=== PATIENT | male | born 1965 | race Caucasian/White ===

== ENCOUNTER 2023-02-10 08:46 | Emergency (ER) | payer OTHER, SELFPAY ==
[2023-02-10 08:48] VITALS: BP 132/100; PULSE 100; RESP 18; TEMP 36.6; O2SAT 97
--- NOTE | 2023-02-10 09:40 | ED.GENADULT ---
HPI - General Adult General Chief complaint: Unspecified Stated complaint: throat problems Time Seen by Provider: 02/10/23 09:02 History of Present Illness HPI narrative: 57-year-old male reports for evaluation for dysphagia and laryngitis after his rotator cuff surgery on 01/27. Patient had rotator cuff surgery with Dr. Snyder at [facility] on 01/27. Patient states since then, he has developed difficulty swallowing and talking. He states he is having trouble eating because he feels as though food is getting stuck in his throat. He saw his surgeon for follow-up recently week after surgery he told him it will likely get better with time. The anesthesiologist was contacted regarding the case he then called the patient and advised the patient to wait out symptoms and that they will likely a better time, however the patient states that the symptoms seem to be getting worse. States that currently does not feel like he has something stuck in his throat, however he is fearful to eat. States he is able to drink water and fluids and has been keeping himself hydrated. He denies fever, nausea or vomiting. He has a follow-up with his primary care provider tomorrow and with his orthopedic surgeon in 2 weeks. His shoulder is healing well, no reported surrounding redness or drainage from incision sites. Related Data Allergies Allergy/AdvReac Type Severity Reaction Status Date / Time No Known Allergies Allergy Unverified 04/29/21 11:05 Review of Systems Review of Systems: CONSTITUTIONAL: Denies fever, chills, or sweats. EYES: Denies visual changes, redness, or discharge. ENT: See HPI CARDIOVASCULAR: Denies chest pain, palpitations, or edema. RESPIRATORY: Denies cough or dyspnea. GASTROINTESTINAL: Denies abdominal pain, nausea, vomiting, or diarrhea. GENITOURINARY: Denies dysuria or hematuria. SKIN: Denies rash or itching. MUSCULOSKELETAL: See HPI NEUROLOGIC: Denies headache, numbness, or weakness. PSYCHIATRIC: Denies anxiety or depression. Exam Narrative: GENERAL: Well-appearing, well-nourished, and in no acute distress. HEAD: Normocephalic, atraumatic. EYES: PERRLA and EOMI. ENT: Nares clear, no rhinorrhea or epistaxis. Mucous membranes moist. Bilateral TMs are tan nonbulging. Normal canals. Posterior pharynx without erythema or edema. No tonsillar hypertrophy. Uvula is midline. Airway patent. Patient speaking in full sentences. Tolerating secretions. Mild hoarse voice. NECK: Supple. CHEST: Clear to auscultation. No respiratory distress. HEART: Regular rate and rhythm. No murmur heard. Normal peripheral pulses. ABDOMEN: Soft, nontender, nondistended, normal active bowel sounds. EXTREMITIES: Patient arrived in an arm sling. Three small incisions sites to the right glenohumeral joint with proper healing and scarring. No surrounding erythema, edema, fluctuance or induration. No warmth to shoulder. Limited range of motion secondary to recent surgery. Radial pulse 2 +. Sensation intact throughout. Full range of motion of wrist and fingers. SKIN: Warm, dry, no rash. NEURO: No focal deficits. Alert and oriented x3 Course Vital Signs Vital signs: Vital Signs Temperature 97.8 F 02/10/23 08:48 Pulse Rate 100 02/10/23 08:48 Respiratory Rate 18 02/10/23 08:48 Blood Pressure 132/100 H 02/10/23 08:48 Pulse Oximetry 97 02/10/23 08:48 Temperature 97.8 F 02/10/23 08:48 Pulse Rate 100 02/10/23 08:48 Respiratory Rate 18 02/10/23 08:48 Blood Pressure 132/100 H 02/10/23 08:48 Pulse Oximetry 97 02/10/23 08:48 Medical Decision Making [facility] Narrative Medical decision making narrative: 57-year-old male who recently had a rotator cuff surgery on 01/27/2023 at [facility] reports for evaluation for dysphagia and laryngitis since the operation. See HPI for further history. Vitals significant for elevated blood pressure 132/100, otherwise unremarkable. He is tolerating his secretions, no airway compromi
[2023-02-10 10:05] VITALS: BP 112/80; PULSE 88; RESP 18; O2SAT 99
== END 2023-02-10 10:05 | disposition home or self-care (01) ==
PROVIDERS: Emergency Provider Physician Assistant; PCP Family Medicine
DX: R13.10 Dysphagia, unspecified (principal); J04.0 Acute laryngitis; Z98.890 Other specified postprocedural states
CPT/HCPCS: 99281

== ENCOUNTER 2023-02-21 19:53 | Emergency (ER) | payer OTHER, SELFPAY ==
--- NOTE | ~2023-02-21 | CT_ITS ---
EXAMINATION: CTA chest PE protocol DATE: 02/21/2023 22:46 INDICATION: Chest pain. Shortness of breath. TECHNIQUE: Computed tomography angiography (CTA) of the chest was performed with 100 mL Omnipaque-350 intravenous contrast timed to evaluate the pulmonary arteries. Coronal maximum intensity projection 3D-reconstructions were created by the technologist. Automated exposure control and iterative reconst ruction technique were employed. The dose-length product was 205.79 mGy-cm. COMPARISON: Chest view 02/21/2023 FINDINGS: There is mild emphysema. There are airspace opacities and nodules involving the lower lobes , right worse than left. No pleural effusion. The heart size is normal. No pericardial effusion. Ther e is no pulmonary embolus. There is bilateral hilar and mediastinal lymphadenopathy. There is 11 mm c yst in left kidney. There are multiple hypodense liver masses measuring up to 2.0 cm. There are wides pread lytic lesions of bone. There are pathologic burst fractures of T2 and L1. There are chronic com pression fractures of T6 and T8. IMPRESSION: 1. No pulmonary embolus. 2. Liver masses and bone lesions, consistent with metastatic disease. Pathologic burst fractures of T 2 and L1. Ultrasound-guided core needle biopsy of a liver mass is recommended. 3. Bilateral lower lobe pneumonia. An ill-defined nodule within the right lower lobe pneumonia is von picious for primary malignancy. 4. Bilateral hilar and mediastinal lymphadenopathy, likely a combination reactive lymphadenopathy and metastatic disease. Reviewed, dictated and finalized at location A. NA IMPRESSION: 1. No pulmonary embolus. 2. Liver masses and bone lesions, consistent with metastatic disease. Pathologi c burst fractures of T2 and L1. Ultrasound-guided core needle biopsy of a liver mass is recommended. 3. Bilateral lower lobe pneumonia. An ill-defined nodule within the right lower lobe pneumonia is suspicious for primary malignancy. 4. Bilateral hilar and mediastinal lymphadenopathy, likely a combination reacti ve lymphadenopathy and metastatic disease.
--- NOTE | ~2023-02-21 | XR_ITS ---
EXAMINATION: XR chest 1V portable Exam Date/Time: 02/21/2023 20:35 WEB DEVELOPMENT INSTRUCTOR HISTORY: CP, SOB INCREASING OVER PAST 6 MONTHS Comparison: None. RESULT: Lines, tubes, and devices: Interbody device over the lower cervical spine. Lungs and pleura: 2.5 cm right hilar nodular opacity. Cardiomediastinal silhouette: Stable. Other: No acute osseous or upper abdominal finding. IMPRESSION: 2.5 cm right hilar nodular opacity. Recommend CT of the chest with contrast for further evaluation. Reviewed, dictated and finalized at location K. DEVELOPMENT INSTRUCTOR
--- NOTE | 2023-02-21 19:54 | ECG_ITS ---
Measurements Intervals [place] Rate: 142 P: 81 MS: 110 QRS: -20 QRSD: 93 T: 80 QT: 311 QTc: 479 Interpretive Statements SINUS TACHYCARDIA WITH SHORT MS INTERVAL INCOMPLETE RIGHT BUNDLE BRANCH BLOCK DELAYED PRECORDIAL R/S TRANSITION BORDERLINE ST-T WAVE ABNORMALITY- INF/LAT LEADS BASELINE ARTIFACT- I, II, AVR, AVL, V2 ABNORMAL ECG NO PREVIOUS ECG AVAILABLE FOR COMPARISON Electronically Signed On 02-22-2023 8:14:08 DENTAL ASSISTANT MEDICAL ASSISTANT by Eh James D.O.
[2023-02-21 20:11] VITALS: BP 144/99; PULSE 136; RESP 25; TEMP 36.7; O2SAT 81
--- NOTE | 2023-02-21 20:15 | ED.CHESTPAIN ---
HPI - Chest Pain General Chief Complaint: Chest Pain <TRINITY Tuttle Last Filed: 02/26/23 09:28> Stated Complaint: SOB, chest pain <TRINITY Tuttle Last Filed: 02/26/23 09:28> Time Seen by Provider: 02/21/23 20:05 <TRINITY Tuttle Last Filed: 02/26/23 09:28> Source: patient <TRINITY Tuttle Last Filed: 02/26/23 09:28> Mode of arrival: wheelchair <TRINITY Tuttle Last Filed: 02/26/23 09:28> Limitations: no limitations <TRINITY Tuttle Last Filed: 02/26/23 09:28> History of Present Illness HPI narrative: This is a 57 year old male that presents to the ER for shortness of breath. Worsening over the last couple of weeks. Reports associated sore throat, cough and anorexia. He has not been eating or drinking much the last couple of weeks. Reports chest pain with coughing. Denies fevers. <TRINITY Tuttle Last Filed: 02/26/23 09:28> Related Data Allergies/Adverse Reactions: Allergies Allergy/AdvReac Type Severity Reaction Status Date / Time No Known Allergies Allergy Verified 02/21/23 20:16 <TRINITY Tuttle Last Filed: 02/26/23 09:28> Review of Systems Review of Systems: CONSTITUTIONAL: Denies fever ENT: Reports sore throat CARDIOVASCULAR: Reports chest pain. Denies edema. RESPIRATORY: Reports cough and dyspnea. <TRINITY Tuttle Last Filed: 02/26/23 09:28> All systems reviewed & are unremarkable except as noted in HPI and below <TRINITY Tuttle Last Filed: 02/26/23 09:28> PMFSH Past Medical History Medical History: Medical History (Updated 02/24/23 @ 00:01 by Rosalva Corea) History of hyperlipidemia <TRINITY Tuttle Last Filed: 02/26/23 09:28> Social History Social History: Social History (Updated 02/21/23 @ 20:55 by Re Hadley PA-C) Smoking status: Current every day smoker <Re Hadley PA-C - Last Filed: 02/26/23 09:28> Exam Narrative: GENERAL: Chronically ill-appearing, thin, and in no acute distress. HEAD: Normocephalic, atraumatic. EYES: EOMI. ENT: Nares clear, no rhinorrhea or epistaxis. Mucous membranes moist. Oropharynx without tonsillar hypertrophy exudate or other lesions. Bilateral TMs pearly tan non-bulging NECK: Supple. No adenopathy or masses. CHEST: No respiratory distress. Coarse lung sounds throughout. No wheezes or rhonchi HEART: Regular rate and rhythm. No murmur heard. Normal peripheral pulses. ABDOMEN: Soft, nontender, nondistended, normal active bowel sounds. EXTREMITIES: Normal range of motion. No edema. SKIN: Warm, dry, no rash. NEURO: No focal deficits. Alert and oriented x3. PSYCH: Normal mood and affect <Re Hadley PA-C - Last Filed: 02/26/23 09:28> Course Course Emergency Course: Patient updated on his workup and need for transfer for higher level of care <Re Hadley PA-C - Last Filed: 02/26/23 09:28> CONSERVATION SPECIALIST/PA Physician Supervision This is a was performed by both a physician and an APC. I performed all aspects of the MDM as documented w/ the following additions: 57-year-old male presenting hypoxic respiratory failure. Found to have diffuse metastatic lung cancer. Transfer Rx for further workup. All questions answered. Patient in agreement w/ disposition. <Alexandre Boucher MD - Last Filed: 02/22/23 19:27> Reevaluation(s) Reevaluation #1: PATIENT LYING DOWN IN BED COMFORTABLE, ASYMPTOMATIC AT THIS TIME, WAITING FOR BED AVAILABILITY AT [facility] <Ben Del Valle MD - Last Filed: 02/23/23 17:57> Date: 02/23/23 <Ben Del Valle MD - Last Filed: 02/23/23 17:57> Time: 17:57 <Ben Del Valle MD - Last Filed: 02/23/23 17:57> Consultations Consultation #1: Spoke with [facility] transfer center. Patient is on the wait list at [place]. Accepting Dr. Kwok <Re Hadley PA-C - Last Filed: 02/26/23 09:28> Date: 02/22/23 <Re Hadley PA-C - Last Filed:
[2023-02-21] MEDS: ALBUTEROL SULFATE NEB 2.5 MG/3 ML INH INHALATION (20:46)
[2023-02-21] MEDS: IPRATROPIUM BR 0.02% INH SOLN 0.5 MG/2.5 ML VIAL INHALATION (20:46)
[2023-02-21 20:47] VITALS: PULSE 134; RESP 33
[2023-02-21 21:03] VITALS: PULSE 137; RESP 25
[2023-02-21 21:30] VITALS: O2SAT 93
[2023-02-21] MEDS: SODIUM CHLORIDE 0.9% IV 500 ML 999 ML IV CONT (21:32)
[2023-02-21] MEDS: methylPREDNISolone SOD SUCC 125 MG VIAL IV PUSH (21:33)
[2023-02-21 21:36] LABS: Basophils Absolute Auto 0.1 K/mm3 (0.0-0.1); Basophils Percent Auto 0.5 % (0.2-1.2); Eosinophils Percent Auto 0.3 % (0-4.4); Hematocrit 44.7 % (42.0-52.0); Hemoglobin 14.1 g/dL (14.0-18.0); Immature Granulocyte Absolute 0.07 K/mm3 (0.00-0.031); Immature Granulocyte Percent A 0.7 % (0-0.5); Lymphocytes Absolute Auto 1.62 K/mm3 (0.9-3.2); Lymphocytes Percent Auto 16.1 % (18.3-44.2); Mean Corpuscular HGB Conc 31.5 g/dl (32-36); Mean Corpuscular Hemoglobin 29.1 pg (26-34); Mean Corpuscular Volume 92.4 fl (80-100); Mean Platelet Volume 11.1 fl (7.4-10.4); Monocytes Absolute Auto 1.4 K/mm3 (0.1-0.6); Monocytes Percent Auto 13.8 % (2.6-8.5); Neutrophils Absolute Auto 6.9 K/mm3 (1.3-6.7); Neutrophils Percent Auto 68.6 % (45.5-73.1); Platelet Count Result 384 k/mm3 (150-375); Red Blood Count 4.84 M/mm3 (4.6-6.20); Red Cell Distribution Width 13.2 % (11.5-14.5); White Blood Count 10.1 K/mm3 (4.5-10.0)
[2023-02-21 21:43] LABS: Alanine Aminotransferase 33 U/L (6-50); Albumin Level 3.9 g/dL (3.5-5.1); Alkaline Phosphatase 207 U/L (38-126); Anion Gap 10 mmol/L (8-16); Aspartate Amino Transferase 35 U/L (17-59); Bilirubin,Total 1.3 mg/dL (0.2-1.3); Blood Urea Nitrogen 29 mg/dL (9-20); Calcium 11.3 mg/dL (8.4-10.2); Carbon Dioxide 29 mmol/L (22-30); Chloride 98 mmol/L (98-107); Estimated CRCL calculation 74 ml/min; Estimated Glomerular Filt Rate > 60; Glucose 124 mg/dL (65-110); Lactic Acid Reflex 1.9 mmol/L (0.7-2.0); Lipase 53 U/L (23-300); Potassium 4.5 mmol/L (3.4-5.0); Sodium 137 mmol/L (137-145)
[2023-02-21 21:44] LABS: INR 1.5
[2023-02-21 21:45] LABS: Partial Thromboplastin Time 45.2 SECONDS (22.3-36.8)
[2023-02-21 21:54] LABS: Troponin I < 0.012 ng/mL (0.000-0.034)
[2023-02-21 21:58] VITALS: PULSE 106; O2SAT 94
[2023-02-21 21:59] LABS: D Dimer 3.19 ug/mL (<0.48)
[2023-02-21 22:04] LABS: Erythrocyte Sedimentation Rate 17 mm/hr (0-20)
[2023-02-21 22:11] LABS: Influenza A QL RT-PCR Negative (Negative); Influenza B QL RT-PCR Negative (Negative); RSV RNA, RT-PCR Negative (Negative); SARS-CoV-2 RNA PCR Negative (Negative)
[2023-02-21 22:12] VITALS: BP 144/95; PULSE 116; RESP 15; O2SAT 94
[2023-02-21 22:15] LABS: CRP 32.9 mg/dL (<1.0)
[2023-02-21 23:08] LABS: Base Excess ABG -0.2 mEq/l (+/-2.0); HCO3 ABG 24.4 mEq/l (22.0-26.0); PCO2 ABG 39.8 mmHg (35.0-45.0); PO2 ABG 60.8 mmHg (80.0-100.0); pH ABG 7.406 (7.350-7.450)
[2023-02-21 23:09] LABS: Alveolar/Arterial O2 Gradient 120.8 mmHg; Carboxyhemoglobin 1.4 % THb (0-2.0); Fractional Inspired Oxygen 32 %; Methemoglobin ABG 0.3 %THb (0-1.5); Oxygen Content ABG 17.3 %vol (16.0-22.0); Oxygen Saturation ABG 91.5 % (95.0-100.0); Oxyhemoglobin 89.8 % THb (90.0-100.0); Reduced Hemoglobin 8.5 %THb (0-5.0); Total Hemoglobin 13.7 g/dL (12.0-18.0)
[2023-02-21 23:10] LABS: Device NASAL CANNULA; Modified Allen's Test Pass; Site Drawn LEFT RADIAL
[2023-02-22] VITALS (54 sets, daily range): BP systolic 119–149; BP diastolic 86–101; PULSE 63–127; RESP 17–34; TEMP 36.8; O2SAT 93–99
[2023-02-22] MEDS: IPRATROPIUM BR 0.02% INH SOLN 0.5 MG/2.5 ML VIAL INHALATION (00:10)
[2023-02-22] MEDS: ALBUTEROL SULFATE NEB 2.5 MG/3 ML INH INHALATION (00:10)
--- NOTE | 2023-02-22 00:48 | ECG_ITS ---
Measurements Intervals [place] Rate: 113 P: 76 ND: 125 QRS: 49 QRSD: 94 T: 78 QT: 318 QTc: 436 Interpretive Statements SINUS TACHYCARDIA LEFT ATRIAL ENLARGEMENT INCOMPLETE RIGHT BUNDLE BRANCH BLOCK ABNORMAL ECG COMPARED TO ECG 02/21/2023 20:01:48 HEART RATE HAS DECREASED Electronically Signed On 02-23-2023 10:23:43 CRYSTAL SYRUP MAKER by Eh James D.O.
[2023-02-22 00:51] LABS: Troponin I < 0.012 ng/mL (0.000-0.034)
[2023-02-22] MEDS: AZITHROMYCIN 500 MG/NS 250 ML 500 MG/250 ML BAG 250 MG IVPB ×2 (02:13→22:51)
[2023-02-22 04:42] LABS: Troponin I < 0.012 ng/mL (0.000-0.034)
--- NOTE | 2023-02-22 09:19 | PC.NURSE ---
0918 Spoke with Cady from the [facility] transfer center who states we are still waiting on a bed.
--- NOTE | 2023-02-22 15:20 | PC.NURSE ---
Bed Status at [facility] No Medical Bed available - could be couple days pt remains on wait list
--- NOTE | 2023-02-22 15:41 | PC.NURSE ---
Spoke with Crys from [facility] transfer center and gave update on pts vitals. Pt remains on the wait list as [facility] is at max capacity per Crys.
--- NOTE | 2023-02-22 19:20 | PC.NURSE ---
Assumed care of pt from MONICO Forrester at this time.
--- NOTE | 2023-02-22 21:35 | PC.NURSE ---
This RN spoke w [facility] Transfer line and gave them update on pt status. Pt still on waitlist. Will receive call back once bed available.
[2023-02-23] VITALS (13 sets, daily range): BP systolic 121–148; BP diastolic 82–93; PULSE 69–92; RESP 15–37; TEMP 36.5–36.8; O2SAT 93–98
[2023-02-23] MEDS: oxyCODONE HCL (*CRX) 5 MG TAB IR PO (06:30)
--- NOTE | 2023-02-23 07:11 | PC.NURSE ---
Report given to MONICO Callahan at this time.
--- NOTE | 2023-02-23 07:31 | PC.NURSE ---
Meal Tray ordered
--- NOTE | 2023-02-23 09:11 | PC.NURSE ---
Updated [facility] on pt.
--- NOTE | 2023-02-23 11:30 | PC.NURSE ---
Pt reporting 8/10 pain.
[2023-02-23] MEDS: HYDROmorphone HCL INJ (*CRX) 1 MG/ML SYR 0.5 MG IV PUSH ×2 (11:39→16:40)
--- NOTE | 2023-02-23 17:48 | PC.NURSE ---
Received bed at [address] #618. Report # [phone]
--- NOTE | 2023-02-23 18:10 | PC.NURSE ---
Spoke with Nilda Figueroa at [facility] for report.
== END 2023-02-23 20:53 | disposition short-term general hospital (02) ==
PROVIDERS: Emergency Medicine; Physician Assistant; Emergency Provider Emergency Medicine; PCP Family Medicine
DX: J96.91 Respiratory failure, unspecified with hypoxia (principal); R91.8 Other nonspecific abnormal finding of lung field; M89.59 Osteolysis, multiple sites; M48.45 Fatigue fracture of vertebra, thoracolumbar region; R00.0 Tachycardia, unspecified; Z20.822 Contact with and (suspected) exposure to COVID-19; F17.210 Nicotine dependence, cigarettes, uncomplicated
CPT/HCPCS: 36415; 36600; 71045; 71275; 80053; 82375; 82805; 83050; 83605; 83690; 84484; 85025; 85380; 85610; 85652; 85730; 86140; 87040; 87637; 93005; 94640; 96361; 96365; 96366; 96367; 96374; 96376; 99285; A9270; J0456; J0696; J1170; J2930; J7040; Q9967